=== PATIENT | male | born 1975 | race Caucasian/White ===

== ENCOUNTER 2019-08-09 09:54 | Day surgery (SDC) | payer BC ==
[~2019-08-09 09:54] MED LIST: ACETAMINOPHEN 1,000 MG/100 ML BTL IVPB ONE; CEFAZOLIN 2 Gram 2 GM/50 ML BAG IVPB ONE; FAMOTIDINE 20MG TABLET PO ONE; MECLIZINE 25 MG TABLET PO ONE; METOCLOPRAMIDE 10 MG TABLET PO ONE
[2019-08-09] MEDS ORDERED: MIDAZOLAM HCL 2MG/2ML VIAL IV ONE (09:55)
[2019-08-09] MEDS ORDERED: FENTANYL PF 100MCG/2ML VIAL IV ONE (09:55)
[2019-08-09] MEDS ORDERED: RINGERS SOLUTION,LACTATED 1,000 ML IV ONE (10:20)
[2019-08-09] MEDS ORDERED: LIDOCAINE 1% W/EPI 1:100,000 MDV 20 ML VIAL SQ ONE (10:40)
[2019-08-09] MEDS ORDERED: BUPIVACAINE 0.5% W/EPI MPF 30 ML VIAL SQ ONE (10:40)
[2019-08-09] MEDS ORDERED: CEFAZOLIN 1G VIAL IR ONE (10:40)
--- NOTE | 2019-08-09 10:40 | History and Physical Report ---
DATE OF ADMISSION: 08/08/2019 CHIEF COMPLAINT/HISTORY OF CHIEF COMPLAINT: This patient presents with a history of lumbar radiculopathy. Due to the failure of therapy, a spinal cord stimulator trial was conducted on 07/08/2019 with 75 to 85% pain control. Due to the failure of therapy and the success of the trial, he presents for implantation of permanent system. MEDICAL HISTORY: Bladder dysfunction, depression, difficulty sleeping. SURGICAL HISTORY: Hand surgery. CURRENT MEDICATIONS: To be provided, no blood thinners. ALLERGIES: None. SOCIAL HISTORY: Smoking, caffeine. Employment status: Off work. FAMILY HISTORY: Noncontributory. PHYSICAL EXAMINATION: GENERAL: Height is 6 feet 1 inch, weight is 160 pounds. HEENT: Within normal limits. LUNGS: Clear. HEART: Rapid and regular. ABDOMEN: Nontender. MUSCULOSKELETAL: Showed diffuse tenderness throughout the thoracic and lumbar spine. Range of motion produces pain throughout the area and extending into the lower extremities. There are currently no motor or sensory abnormalities in the legs, diffuse tenderness. Range of motion does produce pain. No assistive device required for ambulation. NEUROLOGIC: Cranial nerves are intact. IMPRESSION: Lumbar radiculopathy, ICD 10 code M54.16, M54.7. PLAN: Due to the failure of conservative therapy and success of the stimulator trial, the patient presents for implantation of permanent system. The procedure will be considered outpatient and overnight stay will be evaluated. The potential risks, side effects, and complications have been discussed and reviewed. Interaction with a clinical specialist has been provided and questions answered. Interaction with a clinical specialist has been provided and questions answered. CC: Dr. Sushil Rasmussen [facility]ENTER[facility]iram
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
== END 2019-08-09 11:05 | disposition home or self-care (01) ==
LOC: SUR 09:54
PROVIDERS: ATTEND Pain Medicine Interventional Pain Medicine
DX: M54.16 Radiculopathy, lumbar region (principal); Z53.8 Procedure and treatment not carried out for other reasons; F90.9 Attention-deficit hyperactivity disorder, unspecified type; F41.9 Anxiety disorder, unspecified; F31.9 Bipolar disorder, unspecified; Z53.29 Procedure and treatment not carried out because of patient's decision for other reasons
CPT/HCPCS: 63650; 01936; C1883; J3010; J0690; J7120